=== PATIENT | female | born 1995 | race American Indian/Alaskan Native ===

== ENCOUNTER 2019-03-28 19:25 | Emergency (ER) | payer MEDICAID ==
[2019-03-28 19:36] VITALS: BP 149/90
--- NOTE | 2019-03-28 19:39 | Event Note ---
ED Screening Note Date of service: 03/28/19 Time: 19:36 ED Screening Note: This is a 24 y.o. F. that presents to the ER with abdominal pain and spotting for 1 day. Patient states she is 6 weeks gestation. LMP 02/17/2019, A1 [employer] Dr. Ocampo at [facility] This initial assessment/diagnostic orders/clinical plan/treatment(s) is/are subject to change based on patients health status, clinical progression and re- assessment by fellow clinical providers in the ED. Further treatment and workup at subsequent clinical providers discretion. Patient/guardian urged not to elope from the ED as their condition may be serious if not clinically assessed and managed. Initial orders include: Labs and OB US
[2019-03-28 20:10] LABS: Basophils % (Auto) 0.5 % (0.0-1.8); Eosinophils # (Auto) 0.1 K/mm3 (0.0-0.4); Eosinophils % (Auto) 1.3 % (0.0-4.3); Hematocrit 36.9 % (30.3-42.9); Hemoglobin 12.9 gm/dl (10.1-14.3); Lymphocytes # (Auto) 3.5 K/mm3 (1.2-5.4); Lymphocytes % (Auto) 41.9 % (13.4-35.0); Mean Corpuscular HGB Conc 35 % (30-34); Mean Corpuscular Volume 88 fl (79-97); Monocytes # (Auto) 0.8 K/mm3 (0.0-0.8); Monocytes % (Auto) 9.1 % (0.0-7.3); Platelet Count 295 K/mm3 (140-440); Red Blood Count 4.18 M/mm3 (3.65-5.03); Red Cell Distribution Width 14.3 % (13.2-15.2)
--- NOTE | 2019-03-28 21:21 | Ultrasound Report ---
ULTRASOUND OBSTETRIC INDICATION / CLINICAL INFORMATION: abdominal pain, bleeding, 6 weeks gest. Clinical Gestational Age (GA): 5 weeks 4 days TECHNIQUE: Transabdominal and Transvaginal. COMPARISON: None available. FINDINGS: GESTATIONAL SAC: Small cystic structure in the uterine cavity could represent tiny gestational sac me asuring 0.5 cm corresponding to 5 weeks 2 days. YOLK SAC: Not visualized. EMBRYO/FETUS: Not visualized. ADNEXA: No significant abnormality. FREE FLUID: None. ADDITIONAL FINDINGS: None. IMPRESSION: 1. Small sonolucency within the uterus could potentially represent very early gestational sac. No yol k sac or embryonic pole identified. Clinical and sonographic follow-up is recommended. Signer Name: Stuart Bennett MD Signed: 03/28/2019 9:16 PM Workstation Name: [email or web address]
--- NOTE | 2019-03-28 22:43 | Emergency Department Report ---
ED Abdominal Pain HPI - General Chief Complaint: Abdominal Pain Stated Complaint: 6 WKS /SEVERE CRAMPING Time Seen by Provider: 03/28/19 19:36 Source: patient Mode of arrival: Ambulatory Limitations: No Limitations - History of Present Illness Initial Comments: Patient is a 24-year-old female presents the emergency room with complaints of suprapubic abdominal cramping that began today. She has associated vaginal spotting. She does not report any nausea, vomiting, dysuria, vaginal discharge. She states she took a test yesterday and it was positive. She denies any past medical history. She states she has nausea NSAIDs. She denies any complications with her previous pregnancies. 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[facility] - Related Data Allergies Allergy/AdvReac Type Severity Reaction Status Date / Time NSAIDS (Non-Steroidal Allergy Swelling Verified 03/28/19 19:46 Anti-Inflamma ED Review of Systems ROS: Stated complaint: 6 WKS /SEVERE CRAMPING Other details as noted in HPI Comment: All other systems reviewed and negative ED Past Medical Hx - Past Medical History Previous Medical History?: No - Surgical History Past Surgical History?: Yes Additional Surgical History: - Social History Smoking Status: Never Smoker Substance Use Type: None ED Physical Exam - General Limitations: No Limitations General appearance: alert, in no apparent distress - Head Head exam: Present: atraumatic, normocephalic - Eye Eye exam: Present: normal appearance - ENT ENT exam: Present: mucous membranes moist - Respiratory Respiratory exam: Present: normal lung sounds bilaterally. Absent: respiratory distress, wheezes, rales, rhonchi, stridor, chest wall tenderness, accessory muscle use, decreased breath sounds, prolonged expiratory - Cardiovascular Cardiovascular Exam: Present: regular rate, normal rhythm, normal heart sounds. Absent: systolic murmur, diastolic murmur, rubs, gallop - GI/Abdominal GI/Abdominal exam: Present: soft, normal bowel sounds. Absent: tenderness, guarding, rebound, rigid - Neurological Exam Neurological exam: Present: alert, oriented X3 - Psychiatric Psychiatric exam: Present: normal affect, normal mood - Skin Skin exam: Present: warm, dry, intact ED Course Vital Signs 03/28/19 19:35 Temperature 97.9 F Pulse Rate 111 H Respiratory 18 Rate Blood Pressure 149/90 O2 Sat by Pulse 95 Oximetry ED Medical Decision Making - Lab Data Result diagrams: 03/28/19 19:57 Lab Results 03/28/19 03/28/19 03/28/19 Range/Units 19:57 19:57 19:57 WBC 8.3 (4.5-11.0) K/mm3 RBC 4.18 (3.65-5.03) M/mm3 Hgb 12.9 (10.1-14.3) gm/dl Hct 36.9 (30.3-42.9) % MCV 88 (79-97) fl MCH 31 (28-32) pg MCHC 35 H (30-34) % RDW 14.3 (13.2-15.2) % Plt Count 295 (140-440) K/mm3 Lymph % (Auto) 41.9 H (13.4-35.0) % [place] % (Auto) 9.1 H (0.0-7.3) % Eos % (Auto) 1.3 (0.0-4.3) % Baso % (Auto) 0.5 (0.0-1.8) % Lymph # 3.5 (1.2-5.4) K/mm3 [place] # 0.8 (0.0-0.8) K/mm3 Eos # 0.1 (0.0-0.4) K/mm3 Baso # 0.0 (0.0-0.1) K/mm3 Seg Neutrophils % 47.2 (40.0-70.0) % Seg Neutrophils # 3.9 (1.8-7.7) K/mm3 HCG, Qual Positive (Negative) HCG, Quant 1852 H (0-4) mIU/mL Urine Color (Yellow) Urine Turbidity (Clear) Urine pH (5.0-7.0) Ur Specific [place] (1.003-1.030) Urine Protein (Negative) mg/dL Urine Glucose (UA) (Negative) mg/dL Urine Ketones (Negative) mg/dL Urine Blood (Negative) Urine Nitrite (Negative) Urine Bilirubin (Negative) Urine Urobilinogen (<2.0) mg/dL Ur Leukocyte Esterase (Negative) Urine WBC (Auto) (0.0-6.0) /HPF Urine RBC (Auto) (0.0-6.0) /HPF U Epithel Cells (Auto) (0-13.0) /HPF Calcium Oxalate Crystal Urine Mucus /HPF Blood Type 03/28/19 03/28/19 Range/Units 19:57 22:38 WBC (4.5-11.0) K/mm3 RBC (3.65-5.03) M/mm3 Hgb (10.1-14.3) gm/dl Hct (30.3-42.9) % MCV (79-97) fl MCH (28-32) pg MCHC (30-34) % RDW (13.2-15.2) % Plt Count (140-440) K/mm3 Lymph % (Auto) (13.4-35.0) % [place] % (Auto) (0.0-7.3) % Eos % (Auto) (0.0-4.3) % Baso % (Auto) (0.0-1.8) % Lymph # (1.2-5.4) K/mm3 [place] # (0.0-0.8) K/mm3 Eos # (0.0-0.4) K/mm3 Baso # (0.0-0.1) K/mm3 Seg Neutrophils % (40.0-70.0) % Seg Neutrophils # (1.8-7.7) K/mm3 HCG, Qual (Negative) HCG, Quant (0-4) mIU/mL Urine Color Yellow (Yellow) Urine Turbidity Clear (Clear) Urine pH 6.0 (5.0-7.0) Ur Specific [place] 1.019 (1.003-1.030) Urine Protein <15 mg/dl (Negative) mg/dL Urine Glucose (UA) Neg (Negative) mg/dL Urine Ketones Tr (Negative) mg/dL Urine Blood Sm (Negative) Urine Nitrite Neg (Negative) Urine Bilirubin Neg (Negative) Urine Urobilinogen 2.0 (<2.0) mg/dL Ur Leukocyte Esterase Neg (Negative) Urine WBC (Auto) < 1.0 (0.0-6.0) /HPF Urine RBC (Auto) 3.0 (0.0-6.0) /HPF U Epithel Cells (Auto) < 1.0 (0-13.0) /HPF Calcium Oxalate Crystal 1+ Urine Mucus Few /HPF Blood Type A POSITIVE - Radiology Data Radiology results: report reviewed ULTRASOUND OBSTETRIC INDICATION / CLINICAL INFORMATION: abdominal pain, bleeding, 6 weeks gest. Clinical Gestational Age (GA): 5 weeks 4 days TECHNIQUE: Transabdominal and Transvaginal. COMPARISON: None available. FINDINGS: GESTATIONAL SAC: Small cystic structure in the uterine cavity could represent tiny gestational sac measuring 0.5 cm corresponding to 5 weeks 2 days. YOLK SAC: Not visualized. EMBRYO/FETUS: Not visualized. ADNEXA: No significant abnormality. FREE FLUID: None. ADDITIONAL FINDINGS: None. IMPRESSION: 1. Small sonolucency within the uterus could potentially represent very early ge stational sac. No yolk sac or embryonic pole identified. Clinical and sonographic follow-up is recommended. Signer Name: Stuart Bennett MD Signed: 03/28/2019 9:16 PM Workstation Name: [id number] Transcribed By: DT Dictated By: Aryan Bennett MD Electronically Authenticated By: Aryan Bennett MD Signed Date/Time: 03/28/19 1714 - Medical Decision Making Patient is a 24-year-old female presents the emergency room with complaints of suprapubic abdominal cramping that began today. She has associated vaginal spotting. She does not report any nausea, vomiting, dysuria, vaginal discharge. She states she took a test yesterday and it was positive. She denies any past medical history. She states she has nausea NSAIDs. She denies any complications with her previous pregnancies. 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 labs WNL. pt is Rh positive. hcg quant is 1852. OB US shows: . Small sonolucency within the uterus could potentially represent very early gestational sac. No yolk sac or embryonic pole identified. Clinical and sonographic follow-up is recommended. discussed with pt that she would need a repeat hcg quant in 2 days. advised she could do this at the emergency department or the [facility]. advised to please begin taking a daily vitamin and drink plenty of water. discussed with pt that only waiting for her urine results to make sure she did not have a UTI. pt agreed with plan. informed by nursing staff pt eloped from the ED prior to urine resulting. UA shows no evidence of UTI. Critical care attestation.: If time is entered above; I have spent that time in minutes in the direct care of this critically ill patient, excluding procedure time. ED Disposition Clinical Impression: Threatened miscarriage Abdominal pain Qualifiers: Abdominal location: lower abdomen, unspecified Qualified Code(s): R10.30 - Lower abdominal pain, unspecified Disposition: ELOPED Is pt being admited?: No Does the pt Need Aspirin: No Condition: Stable Instructions: Threatened Miscarriage (ED) Additional Instructions: will need to have repeat hcg quant in the next 2 days. follow up with [facility]. return to the emergency room for any new or worsening symptoms. Referrals: PINO LOWE [Primary Care Provider] - 2-3 Days [facility] [Provider Group] - 2-3 Days
[2019-03-28 23:07] LABS: Bilirubin,Urine NEG (Negative); Blood,Urine SM (Negative); Calcium Oxalate Crystals,Urine 1+; Color,Urine Yellow (Yellow); Mucus,Urine FEW /HPF; Protein,Urine <15 mg/dL mg/dL (Negative); WBC,Urine < 1.0 /HPF (0.0-6.0)
== END 2019-03-28 21:00 | disposition left against medical advice (07) ==
LOC: ED 19:25
DX: O20.0 Threatened abortion (principal); Z88.7 Allergy status to serum and vaccine; Z3A.01 Less than 8 weeks gestation of pregnancy
CPT/HCPCS: 36415; 76801; 76817; 81001; 84702; 84703; 85025; 86900; 86901; 99284